=== PATIENT | male | born 1985 | race Caucasian/White ===

== ENCOUNTER 2016-12-08 20:49 | Emergency (ER) | payer OTHER ==
[~2016-12-08] VITALS: Ht 170.2 cm; Wt 70.3 kg
[2016-12-08 21:32] VITALS: BP 134/88
== END 2016-12-08 21:32 | disposition left against medical advice (07) ==
LOC: EMR 21:30
DX: R00.2 Palpitations (principal); F41.9 Anxiety disorder, unspecified; Z53.21 Procedure and treatment not carried out due to patient leaving prior to being seen by health care provider
CPT/HCPCS: 99281